=== PATIENT | female | born 1950 | race African-American/Black ===

== ENCOUNTER 2018-12-03 19:25 | Inpatient (IN) | payer MEDICARE ==
[~2018-12-03] VITALS: Ht 172.7 cm; Wt 65.3 kg
[2018-12-03] MEDS ORDERED: LORAZEPAM 2MG/ML CPJ IV STA (21:18)
[2018-12-03] MEDS ORDERED: SODIUM CHLORIDE 0.9% 1,000 ML IV ONE (21:18)
[2018-12-03] MEDS ORDERED: LORAZEPAM 2MG/ML CPJ IV ONE (22:00)
[2018-12-03] MEDS ORDERED: HALOPERIDOL LACTATE 5MG/ML VIAL IM ONE (22:00)
[2018-12-03 22:44] LABS: BASOPHILS % 1.1 % (0.0-2.0); HEMATOCRIT. 36.5 % (36.0-48.0); HEMOGLOBIN. 11.8 g/dL (12.0-16.0); LYMPHOCYTES % 30.4 % (20.0-50.0); MEAN CORPUSCULAR HEMOGLOBIN 26.2 pg (28.0-32.0); MEAN CORPUSCULAR VOLUME 81.1 fL (81.0-99.0); MEAN PLATELET VOLUME 9.2 fl (7.4-10.4); MONOCYTES % 7.2 % (2.0-8.0); NEUTROPHILS % 61.3 % (40.0-76.0); PLATELET 211 x1000/uL (130-400); RED BLOOD CELL COUNT 4.51 mill/uL (4.2-5.4); RED CELL DISTRIBUTION WIDTH 14.3 % (11.6-14.6)
[2018-12-03 22:47] LABS: CHLORIDE 111 mEq/L (98-107)
[2018-12-03 22:51] LABS: HCG SCREEN NEGATIVE
[2018-12-03 22:52] LABS: ETHANOL BLOOD < 10 mg/dL; INR 1.1; PARTIAL THROMBOPLASTIN TIME 25.7 sec (23.4-31.0); PROTHROMBIN TIME 10.8 sec (9.1-11.1)
[2018-12-03 23:03] LABS: CLARITY URINE CLEAR (CLEAR); COLOR URINE YELLOW (YELLOW); KETONES URINE 1+ (NEGATIVE); LEUKOCYTE ESTERASE URINE NEGATIVE (NEGATIVE); NITRITE URINE NEGATIVE (NEGATIVE); OCCULT BLOOD URINE NEGATIVE (NEGATIVE); PROTEIN URINE TRACE (NEGATIVE); SPECIFIC GRAVITY URINE 1.032 (1.005-1.030); UROBILINOGEN URINE 0.2 E.U./dL (0.2-1.0)
[2018-12-03 23:16] LABS: *AMPHETAMINES SCREEN URINE NEGATIVE (NEGATIVE); *BARBITURATES SCREEN URINE NEGATIVE (NEGATIVE)
[2018-12-03 23:17] LABS: *BENZODIAZEPINES SCREEN URINE NEGATIVE (NEGATIVE); *COCAINE SCREEN URINE NEGATIVE (NEGATIVE); CANNABINOID URINE SCREEN NEGATIVE (NEGATIVE); METHADONE URINE SCREEN NEGATIVE (NEGATIVE); OPIATES URINE SCREEN NEGATIVE (NEGATIVE); PHENCYCLIDINE URINE SCREEN NEGATIVE (NEGATIVE)
[2018-12-04] MEDS ORDERED: ASPIRIN 300MG SUPP PR ONE (00:45)
[2018-12-04] MEDS ORDERED: GUAIFENESIN 200MG/10ML SUGAR FREE UDC PO PRN (10:15)
[2018-12-04] MEDS ORDERED: DOCUSATE SODIUM 100MG CAPSULE PO PRN (10:15)
[2018-12-04] MEDS ORDERED: HYDRALAZINE 20MG/ML VIAL IV PRN (10:15)
[2018-12-04] MEDS ORDERED: ONDANSETRON HCL 4MG/2ML INJ IV PRN (10:15)
[2018-12-04] MEDS ORDERED: CLONIDINE 0.1MG TABLET PO PRN (10:15)
[2018-12-04] MEDS ORDERED: IPRATROPIUM/ALBUTEROL 0.5-3(2.5)MG/3ML NEB INH PRN (10:15)
[2018-12-04] MEDS ORDERED: ACETAMINOPHEN 325MG TABLET PO PRN (10:15)
[2018-12-04] MEDS ORDERED: MAGNESIUM/ALUMINUM HYDROXIDE/SIMETHICONE 30ML UDC PO PRN (10:15)
[2018-12-04] MEDS: DIPHENHYDRAMINE 50MG/ML VIAL IV PRN ×2 (14:10→18:18)
[2018-12-04] MEDS: LORAZEPAM 2MG/ML CPJ IV PRN ×2 (14:18→19:00)
[2018-12-04] MEDS ORDERED: HYDROCODONE/ACETAMINOPHEN 10/325MG TABLET PO PRN (17:00)
[2018-12-04] MEDS ORDERED: HYDROMORPHONE HCL/PF 2MG/ML CPJ IV PRN (17:00)
[2018-12-04 20:00] VITALS: BP_SYST 150; BP_SYST 152; BP_DIAS 68; BP_DIAS 96
[2018-12-04] MEDS: ENOXAPARIN 40MG/0.4ML SYR SUBCUT SCH (20:41)
[2018-12-04] MEDS ORDERED: NA PHOS,M-B/NA PHOS,DI-BA ENEMA 118ML PR PRN (21:00)
[2018-12-04] MEDS: SODIUM CHLORIDE 0.9% INJ 3ML FLUSH IVF SCH (21:08)
[2018-12-05] MEDS: LORAZEPAM 2MG/ML CPJ IV PRN ×3 (01:23→17:28)
[2018-12-05 01:29] LABS: CREATINE KINASE 243 IU/L (26-192)
[2018-12-05 01:33] LABS: CREATINE KINASE MB FRACTION 2.5 ng/mL (0.5-3.6)
[2018-12-05 04:00] VITALS: BP 141/83
[2018-12-05] MEDS: SODIUM CHLORIDE 0.9% INJ 3ML FLUSH IVF SCH ×3 (06:15→21:01)
[2018-12-05 06:50] LABS: BASOPHILS % 1.1 % (0.0-2.0); HEMATOCRIT. 33.1 % (36.0-48.0); HEMOGLOBIN. 10.7 g/dL (12.0-16.0); LYMPHOCYTES % 43.3 % (20.0-50.0); MEAN CORPUSCULAR HEMOGLOBIN 26.3 pg (28.0-32.0); MEAN PLATELET VOLUME 9.3 fl (7.4-10.4); MONOCYTES % 7.5 % (2.0-8.0); NEUTROPHILS % 48.1 % (40.0-76.0); PLATELET 207 x1000/uL (130-400); RED BLOOD CELL COUNT 4.09 mill/uL (4.2-5.4); RED CELL DISTRIBUTION WIDTH 14.5 % (11.6-14.6)
[2018-12-05 07:07] LABS: CHLORIDE 113 mEq/L (98-107)
[2018-12-05] MEDS: ASPIRIN 81MG EC TABLET PO SCH (07:52)
[2018-12-05 08:25] VITALS: BP 129/77
[2018-12-05 12:10] VITALS: BP 120/76
[2018-12-05 12:29] VITALS: BP 119/76
[2018-12-05 16:00] VITALS: BP 122/75
[2018-12-05 20:00] VITALS: BP 148/88
[2018-12-05] MEDS: ENOXAPARIN 40MG/0.4ML SYR SUBCUT SCH (20:26)
[2018-12-06 04:00] VITALS: BP 142/65
[2018-12-06] MEDS: SODIUM CHLORIDE 0.9% INJ 3ML FLUSH IVF SCH ×2 (05:57→21:16)
[2018-12-06] MEDS: ASPIRIN 81MG EC TABLET PO SCH (08:46)
[2018-12-06 08:55] VITALS: BP 126/80
[2018-12-06 12:27] VITALS: BP 133/62
[2018-12-06 16:35] VITALS: BP 149/78
[2018-12-06] MEDS: ENOXAPARIN 40MG/0.4ML SYR SUBCUT SCH (20:04)
[2018-12-06 20:05] VITALS: BP 157/83
[2018-12-07] VITALS: BP 150/77
[2018-12-07 03:59] VITALS: BP 143/88
[2018-12-07] MEDS: SODIUM CHLORIDE 0.9% INJ 3ML FLUSH IVF SCH (06:19)
[2018-12-07 08:00] VITALS: BP 157/90
[2018-12-07] MEDS: ASPIRIN 81MG EC TABLET PO SCH (08:54)
[2018-12-07 11:50] VITALS: BP 146/84
== END 2018-12-07 13:53 | disposition home or self-care (01) | DRG 304 ==
LOC: EDBD 19:25 → ER 19:25 → 6WST 12-04 00:44 → EDBEDREQ 12-04 00:47 → EDBEDREQTM 12-04 00:47 → EDBEDREQSVC 12-04 00:47 → ENRESERV 12-04 17:41 → CANRESERV 12-04 17:41 → ENRESERV 12-04 18:22
PROVIDERS: ADMIT Internal Medicine; ATTEND Internal Medicine
DX: I16.0 Hypertensive urgency (principal); G92 Toxic encephalopathy; I10 Essential (primary) hypertension; F22 Delusional disorders; Z91.83 Wandering in diseases classified elsewhere; Z78.1 Physical restraint status
CPT/HCPCS: 36415; 71045; 80305; 80320; 82140; 82550; 82553; 83880; 84484; 84703; 93005; 96374; 96375; 99285; C1893; J1200; J1630; J1650; J2060; J7030; G0480

== ENCOUNTER 2019-01-30 13:24 | Emergency (ER) | payer MEDICARE, OTHER ==
[~2019-01-30] VITALS: Ht 165.1 cm; Wt 65.0 kg
[2019-01-30 13:27] VITALS: BP 150/71
== END 2019-01-30 16:10 | disposition left against medical advice (07) ==
LOC: ER 13:24
DX: R53.1 Weakness (principal); Z53.21 Procedure and treatment not carried out due to patient leaving prior to being seen by health care provider

== ENCOUNTER 2019-01-30 18:43 | Emergency (ER) | payer MEDICARE ==
[~2019-01-30] VITALS: Ht 165.1 cm; Wt 66.0 kg
[2019-01-30 23:02] VITALS: BP 141/74
== END 2019-01-30 23:20 | disposition home or self-care (01) ==
LOC: ER 18:43
DX: Z59.0 Homelessness (principal); F17.200 Nicotine dependence, unspecified, uncomplicated; Z98.890 Other specified postprocedural states
CPT/HCPCS: 99281